=== PATIENT | female | born 1995 | race Caucasian/White ===

== ENCOUNTER 2017-12-27 10:40 | Emergency (ER) | payer SELFPAY ==
[2017-12-27 10:56] VITALS: BP 116/74; PULSE 78; RESP 20; TEMP 36.9; O2SAT 100; BMI 24.2
[2017-12-27 11:18] LABS: Apearance,Urine Clear (Clear); Color,Urine Yellow (Yellow)
[2017-12-27 11:19] LABS: Bilirubin,Urine Negative (Negative); Blood, Urine Negative (Negative); Glucose,Urine (UA) Negative (Negative); Ketones,Urine TRACE (Negative); PH,Urine 7.5 (5.0-8.5); Protein,Urine Trace (Negative); Urobilinogen,Urine 0.2 EU/dl (0.2)
[2017-12-27 11:20] LABS: UTC Leukocyte Esterase,Urine Negative (Negative); UTC Nitrate,Urine Negative (Negative); UTC Pregnancy Test, Urine Negative (Negative)
--- NOTE | 2017-12-27 11:22 | HMH.EDUTC ---
[facility] [place] Disposition Clinical Impression: Breast tenderness in female Disposition: Home, Self-Care Condition on Discharge: Good Additional Instructions: Follow-up on Friday with Dr. Mitchell to discuss possible ultrasound. [facility] appointment [facility] for Pap smear. Domes worsen or do not improve return or be seen in the ER Referrals: Marko Mitchell MD [Primary Care Provider] - Time of Disposition: 12:12 Medical Decision Making Vital Signs: 12/27/17 10:56 Temperature 98.4 F Temperature Source Temporal Artery Scan Pulse Rate [Right Brachial] 78 Respiratory Rate 20 Blood Pressure [Right Arm] 116/74 Blood Pressure Mean [Right Arm] 88 Blood Pressure Source [Right Arm] Automatic Cuff Blood Pressure Position [Right Arm] Sitting 02 Sat by Pulse Oximetry 100 Oxygen Delivery Method Room Air - Lab Data Lab Results 12/27/17 11:03: Urine Color Yellow, Urine Appearance Clear, Urine pH 7.5, Ur Specific [place] 1.020, Urine Protein Trace, Urine Glucose (UA) Negative, Urine Ketones Trace, Urine Blood Negative, Urine Nitrate Negative, Urine Bilirubin Negative, Urine Urobilinogen 0.2, Ur Leukocyte Esterase Negative, [facility] Negative 12/27/17 11:25: Serum HCG, Qual Negative - Bishnu Inquiry Pt receiving controlled substance: No [facility] [place] HPI - General Chief complaint: Urogenital-Female Stated complaint: complaction with control Time Seen by Provider: 12/27/17 11:23 Mode of Arrival: Ambulatory Source of Information: Patient Limitations: No Limitations Description of Symptoms (Recalled from Triage Doc. by RN): PT STATES THAT SHE BELIEVES SHE IS HAVING PROBLEMS WITH HER CONTROL. PT C/O SYMPTOMS OF BUT ADVISES THAT ALL THE TESTS THAT SHE TAKES COMES BACK NEGATIVE. PT REPORTS MULTIPLE PAST VISITS FOR THE SAME PROBLEM. HEENT Symptoms (Recalled from RN notes): No Resp Symptoms (Recalled from RN notes): No Skin Symptoms (Recalled from RN notes): No MS Symptoms (Recalled from RN notes): No Functional Status (Recalled from RN notes): N/A - History of Present Illness Provider Complaint: 22-year-old female presents for control issues. Patient states she is sexually active and believes she is even though the test are negative. Patient states she is on the Depo shot and do to get a new shot she believes soon. Patient states she can feel and see the baby move and kick and has breast tenderness. - Related Data Allergies Allergy/AdvReac Type Severity Reaction Status Date / Time No Known Allergies Allergy Verified 12/27/17 11:05 - Worker's Comp Is this a Worker's Comp case?: No [facility] History I have reviewed the patient's past medical history: Yes Medical History: Denies:: Cancer, Diabetes Mellitus Type 1, Diabetes Mellitus Type 2, MRSA Amputation: No Fractures: No - Social History Smoking Status: Never smoker Alcohol Intake: never - Psychiatric History Expresses thoughts of harming self/others: None Suicide Plan Description: No Plan ROS Obtained: Yes All systems reviewed & no additional complaints - Constitutional Constitutional: Reports system reviewed and no additional complaints, except as docu - Eyes Eyes: Reports system reviewed and no additional complaints, except as docu - ENT Ears, Nose, Mouth, and Throat: Reports system reviewed and no additional complaints, except as docu - Cardiovascular Cardiovascular: Reports system reviewed and no additional complaints, except as docu - Respiratory Respiratory: Yes system reviewed and no additional complaints, except as docu - Gastrointestinal Gastrointestingal: Reports: system reviewed and no additional complaints, except as docu - Genitourinary Female Genitourinary: Reports system reviewed and no additional complaints, except as docu, Reports as per HPI - Musculoskeletal Musculoskeletal: Reports system reviewed and no additional complaints, except as docu - Integumentary/Breasts
--- NOTE | 2017-12-27 11:25 | ED_ITS ---
[facility] [place] Disposition Clinical Impression: Breast tenderness in female Disposition: Home, Self-Care Condition on Discharge: Good Additional Instructions: Follow-up on Friday with Dr. Mitchell to discuss possible ultrasound. Schedule appointment at the health department for Pap smear. Domes worsen or do not improve return or be seen in the ER Referrals: Marko Mitchell MD [Primary Care Provider] - Time of Disposition: 12:12 Medical Decision Making Vital Signs: 12/27/17 10:56 Temperature 98.4 F Temperature Source Temporal Artery Scan Pulse Rate [Right Brachial] 78 Respiratory Rate 20 Blood Pressure [Right Arm] 116/74 Blood Pressure Mean [Right Arm] 88 Blood Pressure Source [Right Arm] Automatic Cuff Blood Pressure Position [Right Arm] Sitting 02 Sat by Pulse Oximetry 100 Oxygen Delivery Method Room Air - Lab Data Lab Results 12/27/17 11:03: Urine Color Yellow, Urine Appearance Clear, Urine pH 7.5, Ur Specific [employer] 1.020, Urine Protein Trace, Urine Glucose (UA) Negative, Urine Ketones Trace, Urine Blood Negative, Urine Nitrate Negative, Urine Bilirubin Negative, Urine Urobilinogen 0.2, Ur Leukocyte Esterase Negative, [facility] Negative 12/27/17 11:25: Serum HCG, Qual Negative - Bishnu Inquiry Pt receiving controlled substance: No [facility] [place] HPI - General Chief complaint: Urogenital-Female Stated complaint: complaction with control Time Seen by Provider: 12/27/17 11:23 Mode of Arrival: Ambulatory Source of Information: Patient Limitations: No Limitations Description of Symptoms (Recalled from Triage Doc. by RN): PT STATES THAT SHE BELIEVES SHE IS HAVING PROBLEMS WITH HER CONTROL. PT C/O SYMPTOMS OF BUT ADVISES THAT ALL THE TESTS THAT SHE TAKES COMES BACK NEGATIVE. PT REPORTS MULTIPLE PAST VISITS FOR THE SAME PROBLEM. HEENT Symptoms (Recalled from RN notes): No Resp Symptoms (Recalled from RN notes): No Skin Symptoms (Recalled from RN notes): No MS Symptoms (Recalled from RN notes): No Functional Status (Recalled from RN notes): N/A - History of Present Illness Provider Complaint: 22-year-old female presents for control issues. Patient states she is sexually active and believes she is even though the test are negative. Patient states she is on the Depo shot and do to get a new shot she believes soon. Patient states she can feel and see the baby move and kick and has breast tenderness. - Related Data Allergies Allergy/AdvReac Type Severity Reaction Status Date / Time No Known Allergies Allergy Verified 12/27/17 11:05 - Worker's Comp Is this a Worker's Comp case?: No [facility] History I have reviewed the patient's past medical history: Yes Medical History: Denies:: Cancer, Diabetes Mellitus Type 1, Diabetes Mellitus Type 2, MRSA Amputation: No Fractures: No - Social History Smoking Status: Never smoker Alcohol Intake: never - Psychiatric History Expresses thoughts of harming self/others: None Suicide Plan Description: No Plan ROS Obtained: Yes All systems reviewed & no additional complaints - Constitutional Constitutional: Reports system reviewed and no additional complaints, except as docu - Eyes Eyes: Reports system reviewed and no additional complaints, except as docu - ENT Ears, Nose, Mouth, and Throat: Reports system reviewed and no additional complaints, except as docu - Cardi
[2017-12-27 12:10] LABS: HCG Qualitative, Serum Negative (Negative)
[2017-12-27 12:18] VITALS: BP 116/74; PULSE 78; RESP 20; TEMP 36.9; O2SAT 100
== END 2017-12-27 12:19 | disposition home or self-care (01) ==
PROVIDERS: Emergency Provider Nurse Practitioner Family; Family Provider Emergency Medicine; PCP Emergency Medicine
DX: N64.4 Mastodynia (principal)
CPT/HCPCS: 81003; 81025; 84703; 99202

== ENCOUNTER → 2018-04-21 08:43 | Outpatient (CLI) | payer BC, SELFPAY | PROVIDERS: Family Provider Emergency Medicine; PCP Emergency Medicine; Visit Provider Emergency Medicine | DX: E22.1 Hyperprolactinemia (principal) ==

== ENCOUNTER → 2018-06-26 08:35 | Outpatient (CLI) | payer BC, SELFPAY ==
--- NOTE | 2018-06-26 08:40 | MR_ITS ---
MR head/brain wo/w con HISTORY: Hyperprolactinemia, collecting 3, lightheadedness with nausea, headache ITS.REASON: elevated prolactin ORDERING PHYSICIAN: Marko Mitchell MD PATIENT AGE: 23 years Comparison: None TECHNIQUE: Standard multiplanar multiecho sequences are performed without and with gadolinium enhancement. FINDINGS: No midline shift, mass effect, intracranial hemorrhage, hydrocephalus, or acute infarction. There is normal olivas-white matter differentiation with no abnormal white matter signal intensity. The cerebellopontine angle, cerebellum, and brainstem are unremarkable. No cerebellar ectopia. Dynamic thin section post enhanced images are obtained through the sella turcica. There is no evidence of pituitary mass. There is a partially empty sella. The pituitary systolic is unremarkable. No mass effect upon the optic chiasm. The hippocampal gyri are unremarkable in the interval and are symmetric. No sinus air-fluid level or mastoid effusion. There is a small retention cyst in the floor of the sphenoid sinus centrally. IMPRESSION: Negative MRI of the brain without and with contrast. Partially the sella as a normal variant. No evidence of pituitary mass or microadenoma
--- NOTE | 2018-06-26 10:01 | HMH.ITSHM ---
ibuprofen loperamide polyethylene glycol promethazine drysol vicky glycoprrolate medroxprogesterone oxcarbazepine risperidone sertraline hcl
== END ==
PROVIDERS: Family Provider Emergency Medicine; PCP Emergency Medicine; Visit Provider Emergency Medicine
DX: E22.1 Hyperprolactinemia (principal)
CPT/HCPCS: 70553; A9576